=== PATIENT | male | born 2000 | race Caucasian/White ===

== ENCOUNTER 2020-11-19 14:30 | Emergency (ER) | payer OTHER, SELFPAY ==
--- NOTE | 2020-11-19 | ECG_ITS ---
Test Reason : CHEST PAIN Blood Pressure : / mmHG Vent. Rate : 094 BPM Atrial Rate : 094 BPM P-R Int : 154 ms QRS Dur : 086 ms QT Int : 316 ms P-R-T Axes : 078 091 049 degrees QTc Int : 395 ms Normal sinus rhythm Rightward axis Nonspecific T wave abnormality Abnormal ECG No previous ECGs available Referred By: Generic ED Physician Electronically Signed By:Casey Tracy
--- NOTE | ~2020-11-19 | XR_ITS ---
EXAMINATION: XR CHEST CLINICAL INFORMATION: Fever and cough COMPARISON: None TECHNIQUE: 2 views of the chest were obtained. FINDINGS: No significant abnormality is noted involving the heart, lungs, mediastinum, bony thorax or soft tissues. XR/XR chest 2V IMPRESSION: Unremarkable examination.
[2020-11-19 14:42] VITALS: BP 110/71; PULSE 102; RESP 16; TEMP 38.4; O2SAT 97; BMI 22.8
[2020-11-19 17:04] LABS: COVID-19 Test Negative (Negative); IDNOW Serial# 9DD0AD1C
[2020-11-19] MEDS: Acetaminophen 325 MG TABLET 975 MG PO (18:34)
[2020-11-19] MEDS: Ibuprofen 800 MG TABLET PO (18:34)
--- NOTE | 2020-11-19 18:57 | ED_ITS ---
HPI - URI/Sore Throat General Chief Complaint: Upper Respiratory Symptoms Stated Complaint: multi complaints Time Seen by Provider: 11/19/20 17:40 Source: patient Mode of arrival: ambulatory Limitations: no limitations History of Present Illness HPI Narrative: 20-year-old male with no significant past medical or surgical history presenting to the ED with complaints of generalized headaches, body aches, fatigue, malaise, chills, fevers, sore throat and cough for the past week worse today. Reports he was not vaccinated against COVID. Denies recent travel or sick contacts. Reports he is not currently working at this time. Denies any dizziness, lightheadedness, neck pain/stiffness, chest pain, shortness of breath, dyspnea on exertion, orthopnea, palpitations, nausea/vomiting/diarrhea/constipation, abdominal pain, back pain, lower extremity edema or calf tenderness, dysuria or any other symptoms complaints or concerns at this time. MD elicited complaint: fever, cough, sore throat, rhinorrhea and nasal congestion Onset (ago): day(s) (1 week) Consistency: constant Severity: moderate Description of mucous: clear, watery and yellow Able to tolerate fluids by mouth: Yes Exacerbating factors: swallowing Associated symptoms: chills and myalgias Treatments prior to arrival: none Related Data Allergies Allergy/AdvReac Type Severity Reaction Status Date / Time No Known Allergies Allergy Verified 11/19/20 14:46 Review of Systems Review of Systems: Constitutional : Positive fever/chills/fatigue/malaise ENT/Mouth : Positive sore throat/nasal congestion/rhinorrhea Eyes: No Discharge Cardiovascular : No Chest Pain, No SOB Respiratory : Positive Cough, No Sputum, No Wheezing, No Smoke Exposure, No Dyspnea Gastrointestinal : No Nausea, No Vomiting, No Diarrhea Genitourinary : No irregular bleeding, No Dysuria, No Urinary Frequency, No Hematuria, No Urinary Incontinence, No Urgency, No Flank Pain, Musculoskeletal : Positive Myalgia Skin : No rash Neuro : No Headache Yes all other systems are reviewed and are negative [facility] Past Medical History Attestation statement: The following information was validated with the patient. Medical History No known health problems Social History Social History Advance Directives: No Advance Directives Information Provided: No Physical Exam Vital Signs: Vital Signs: Last Vital Signs Temp 101.2 F H 11/19/20 14:42 Pulse 102 H 11/19/20 14:42 Resp 16 11/19/20 14:42 BP 110/71 11/19/20 14:42 Pulse Ox 97 11/19/20 14:42 Body Mass Index 22.8 vital signs have been reviewed as normal and appeared to be correct. Blood pressure normal. Heart rate normal. Respiration rate normal. Temperature normal. Oxygen saturation normal. Appearance: Alert. Oriented X3. No acute distress. Head: Normal external exam. Normocephalic. Atraumatic. No Barnett signs noted. No raccoon eyes noted Eyes: PERRLA. EOMI. Conjunctiva and sclera normal. Eyelids normal. ENT: EAC normal. TM's Normal. Pharynx mildly erythematous otherwise normal. No exudate is noted. Uvula midline. Moist mucous membranes. No trismus noted. No drooling noted. No muffled voice noted. Neck: Normal inspection. Neck supple. FROM. No adenopathy. Thyroid Normal. No meningeal signs. No neck mass noted. CVS: Normal heart rate and rhythm. Heart sound normal. Pulses normal throughout. No murmurs/rales/gallops. Respiratory: No respiratory distress. Painless inspiration. Breath sounds normal. No wheezes/rales/rhonchi noted. Chest nontender. No accessory muscle usage noted or decreased air movement noted. Abdomen: Soft and nontender. Bowel sounds normal in all 4 quadrants. No distention noted. No organomegaly noted. No visible injury noted. Back: No CVA tenderness. Full range of motion noted. No rashes/lesion/induration/fluctuance or signs of infection noted. Skin: Skin warm and dry. Normal skin color. Normal skin turgor. No rashes/lesions/lacerations noted. Extremities: No lower extremity edema. No calf tenderness noted. Extremities exhibit normal range of motion. Extremities nontender. Neuro: Oriented X 3. No motor deficit. No sensory deficit. Reflexes normal. Normal steady gait. No focal neuro deficits noted. Vascular: + radial pulses/+ 2 distal pedal pulses/+2 dorsalis pedis b/l. Normal cap refill. No cyanosis noted to upper extremity nails and lower extremity toes nails. MDM - URI/Sore Throat MDM Narrative Medical decision making narrative: 17:53pm - 20-year-old male with no significant past medical or surgical history prese nting to the ED with complaints of generalized headaches, body aches, fatigue, malaise, chills, fevers, sore throat and cough for the past week worse today. Patient had a rapid COVID out in triage which was negative although will obtain a COVID/RSV/flu swab, rapid strep and a chest x-ray. Patient also had an EKG in triage although on unsure why patient denies any chest pain or chest discomfort or shortness of breath. Will give Motrin Tylenol as patient is febrile at 101.2. Then Will re-evaluate Medical Records Attestation: I reviewed the patient's medical records. Lab Data Attestation: I reviewed the patient's lab results. Labs: Lab Results 11/19/20 Range/Units 16:37 COVID-19 (JOVI) Negative (Negative) COVID-19 Clin Com See Note Imaging Data Chest x-ray: Attestation: I personally reviewed and interpreted this imaging study as follows: Radiologist's impression: FINDINGS: No significant abnormality is noted involving the heart, lungs, mediastinum, bony thorax or soft tissues. XR/XR chest 2V IMPRESSION: Unremarkable examination. ECG Data Attestation: I personally reviewed and interpreted this ECG as follows: ECG interpretation date: 11/19/20 ECG interpretation time: 14:40 Interpretation: Normal sinus rhythm with a ventricular rate of 94 with rightward axis with nonspecific T-wave abnormalities no acute ischemic changes are noted. No prior EKGs in our system to compare to at this time.
[2020-11-19 19:03] VITALS: BP 115/67; PULSE 92; RESP 18; TEMP 38.6; O2SAT 97
[2020-11-19 19:18] LABS: IDNOW Serial# 9DD0AD1C; Strep A Nucleic Acid Positive (Negative)
[2020-11-19 20:17] LABS: Influenza A PCR NEGATIVE (Negative); Influenza B PCR NEGATIVE (Negative); Resp Syncy Virus RNA Qual PCR NEGATIVE (Negative); SARS COV2 PCR INHOUSE NEGATIVE (Negative)
== END 2020-11-19 19:54 | disposition home or self-care (01) ==
PROVIDERS: Physician Assistant Medical; Emergency Provider Emergency Medicine
DX: J02.0 Streptococcal pharyngitis (principal); Z20.822 Contact with and (suspected) exposure to COVID-19; R50.9 Fever, unspecified
CPT/HCPCS: 0241U; 36415; 71046; 87635; 87651; 93005; 99283; 99284

== ENCOUNTER 2021-11-13 22:43 | Emergency (ER) | payer OTHER, SELFPAY ==
[2021-11-13 23:11] VITALS: BP 111/66; PULSE 110; RESP 18; TEMP 39.1; O2SAT 97; BMI 22.1
[2021-11-13 23:28] LABS: COVID-19 Test Positive (Negative); IDNOW Serial# 9DB6401D
[2021-11-13 23:36] LABS: IDNOW Serial# 16C4AD1C; Influenza A Negative (Negative); Influenza B2 Negative (Negative)
--- NOTE | 2021-11-14 00:19 | ED_ITS ---
HPI - Fever General Chief Complaint: Fever Stated Complaint: Fever/Dizziness/Headache Time Seen by Provider: 11/14/21 00:19 Source: patient Mode of arrival: ambulatory Limitations: no limitations History of Present Illness HPI Narrative: 21 yo male presents to the ER with MD elicited complaint: fever Related Data Previous Rx's Medication Instructions Recorded acetaminophen 500 mg tablet 1,000 mg PO QID PRN #14 tab 11/19/20 (Tylenol Extra Strength) amoxicillin 875 mg-potassium 1 tab PO BID 10 Days #20 tab 11/19/20 clavulanate 125 mg tablet (Augmentin) cyclobenzaprine 10 mg tablet 10 mg PO Q8H #10 tab 11/19/20 ibuprofen 800 mg tablet 800 mg PO Q8H PRN #14 tab 11/19/20 Allergies Allergy/AdvReac Type Severity Reaction Status Date / Time No Known Allergies Allergy Verified 11/13/21 23:11 [facility] Past Medical History Medical History No known health problems Social History Social History Advance Directives: No Physical Exam Vital Signs: Vital Signs: Last Vital Signs Temp 102.3 F H 11/13/21 23:11 Pulse 110 H 11/13/21 23:11 Resp 18 11/13/21 23:11 BP 111/66 11/13/21 23:11 Pulse Ox 97 11/13/21 23:11 BMI result Body Mass Index 22.1 MDM - Fever Lab Data Labs: Lab Results 11/13/21 11/13/21 Range/Units 23:13 23:13 COVID-19 (JOVI) Positive A (Negative) COVID-19 Clin Com See Note Influenza Type A (LARISSA) Negative (Negative) Influenza Type B (LARISSA) Negative (Negative) Influenza A & B Note See Note Discharge Plan Discharge Clinical Impression: COVID-19 Patient Disposition: Home, Self-Care Instructions: Covid-19 Viral Syndrome and Novel Coronavirus (ED) Hey/Ath Additional Instructions: You were found to be COVID-19 POSITIVE today. Your exam and oxygen levels were normal. Rest. Drink plenty of fluids. Do not go out in public for the next 10 days. Take over the counter cold/flu medications as needed for your symptoms. Take Tylenol and/or Motrin as needed for fevers and body aches. Follow up with your doctor this week. If you shortness of breath worsens , if you develop difficulty breathing or any other concerning symptom come back to the ER for further evaluation. Prescriptions: No Action cyclobenzaprine 10 mg tablet 10 mg PO Q8H Qty: 10 0RF ibuprofen 800 mg tablet 800 mg PO Q8H PRN (Reason: pain) Qty: 14 0RF acetaminophen [Tylenol Extra Strength] 500 mg tablet 1,000 mg PO QID PRN (Reason: fever or pain) Qty: 14 0RF amoxicillin-pot clavulanate [Augmentin] 875-125 mg tablet 1 tab PO BID 10 Days Qty: 20 0RF
== END 2021-11-14 00:31 | disposition left against medical advice (07) ==
PROVIDERS: Emergency Medicine Emergency Medical Services; Emergency Provider Emergency Medicine
DX: R50.9 Fever, unspecified (principal); R51.9 Headache, unspecified; R42 Dizziness and giddiness; Z20.822 Contact with and (suspected) exposure to COVID-19
CPT/HCPCS: 87502; 87635; 99283